=== PATIENT | female | born 1965 | race Hispanic/Latino ===

== ENCOUNTER 2019-01-04 08:51 | Emergency (ER) | payer BC ==
--- NOTE | 2019-01-04 09:38 | RAD REPORT ---
EXAM DESCRIPTION: CT - Head C Spine Mpr Wo Con - 01/04/2019 9:21 am CLINICAL HISTORY: Left arm numbness/headache TECHNIQUE: Computed axial tomography of the head and cervical spine was obtained. Sagittal and coronal reconstruction was performed. All CT scans are performed using dose optimization technique as appropriate and may include automated exposure control or mA/KV adjustment according to patient size. FINDINGS: An intracranial bleed is not seen. The ventricles are normal in caliber. An extra-axial fl uid collection is not noted.Fluid within the visualized sinuses and mastoids is not seen A cervical fracture is not visualized. No dislocation is noted. Prominent posterior spur C5 and C6 wi th disc bulge. Mild central spinal stenosis C5-6. Mild left foraminal stenosis IMPRESSION: No acute intracranial abnormality is seen. A cervical fracture is not visualized. Spondylosis C5-6 resulting in mild central spinal stenosis and mild left foraminal stenosis. If the patient continues to have symptoms to suggest intracranial /spinal cord/spinal canal pathology then MRI would be recommended
[2019-01-04 09:39] LABS: Absolute Lymphocytes (CBC) 1.6 K/uL (0.7-4.9); Basophils % 1.1 % (0-1.3); Hematocrit 42.2 % (36.0-45.0); RBC Red Blood Cell Count 4.51 M/uL (3.86-4.86)
[2019-01-04 09:58] LABS: BUN Blood Urea Nitrogen 14 mg/dL (7-18); Bicarbonate 28 mmol/L (21-32); Glucose Level 121 mg/dL (74-106); Potassium 4.1 mmol/L (3.5-5.1); Sodium Level 138 mmol/L (136-145); Troponin (Emerg Dept Use Only) < 0.02 ng/mL (0.0-0.045)
--- NOTE | 2019-01-04 10:34 | ER ---
Nurse's Notes [facility] Name: Niecy Lockett Age: 53 yrs Sex: Female : 1965 Arrival Date: 01/04/2019 Time: 08:52 Bed 18 Private MD: Diagnosis: Cervical disc disorder with radiculopathy, mid-cervical region Presentation: 01/04 09:08 Presenting complaint: Patient states: left arm tingling since yesterday, feels like she iw slept on it wrong, fingertips are tingling, BP has also been running high. Transition of care: patient was not received from another setting of care. Onset of symptoms was January 03, 2019. Risk Assessment: Do you want to hurt yourself or someone else? Patient reports no desire to harm self or others. Initial Sepsis Screen: Does the patient meet any 2 criteria? No. Patient's initial sepsis screen is negative. Does the patient have a suspected source of infection? No. Patient's initial sepsis screen is negative. Care prior to arrival: None. 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 - Social history:: Smoking status: Patient uses tobacco products, smokes one-half pack cigarettes per day. - Family history:: not pertinent. - Ebola Screening: : Patient negative for fever greater than or equal to 101.5 degrees Fahrenheit, and additional compatible Ebola Virus Disease symptoms Patient denies exposure to infectious person Patient denies travel to an Ebola-affected area in the 21 days before illness onset No symptoms or risks identified at this time. - Hospitalizations: : No recent hospitalization is reported. Screenin:10 Abuse screen: Denies threats or abuse. Nutritional screening: No deficits noted. em Tuberculosis screening: No symptoms or risk factors identified. Fall Risk None identified. Assessment: 09:10 General: Appears in no apparent distress. comfortable, Behavior is calm, cooperative, em Denies fever. Pain: Complains of pain in chest and left arm Pain radiates to left arm Pain currently is 7 out of 10 on a pain scale. Quality of pain is described as numb, Pain began 1 week Is intermittent, lasting a few minutes. Neuro: Level of Consciousness is awake, alert, obeys commands, Oriented to person, place, time, situation, Appropriate for age Supervisor Polishing are equal bilaterally Moves all extremities. Gait is steady, Speech is normal, Facial symmetry appears normal. Cardiovascular: Denies diaphoresis, nausea, vomiting, Heart tones S1 S2 present Capillary refill < 3 seconds Patient's skin is warm and dry. Rhythm is sinus rhythm. Respiratory: Airway is patent Respiratory effort is even, unlabored, Respiratory pattern is regular, symmetrical, Denies cough. GI: Abdomen is flat, Patient currently denies nausea, vomiting. Derm: Skin is intact, is healthy with good turgor, Skin is pink, warm \T\ dry. Musculoskeletal: Capillary refill < 3 seconds, Range of motion: intact in all extremities. 09:25 Reassessment: reports pain in chest when lying down, described as pressure, rates em pressure 7/10, provider notified. 10:10 Reassessment: Patient appears in no apparent distress at this time. Patient and/or em family updated on plan of care and expected duration. Pain level reassessed. Patient is alert, oriented x 3, equal unlabored respirations, skin warm/dry/pink. 10:43 Reassessment: Patient appears in no apparent distress at this time. Patient and/or em family updated on plan of care and expected duration. Pain level reassessed. Patient is alert, oriented x 3, equal unlabored respirations, skin warm/dry/pink. Patient states feeling better. Patient states symptoms have improved. Vital Signs: 09:12 BP 188 / 95; Pulse 65; Resp 16; Temp 98.0; Pulse Ox 98% on R/A; Weight 75.75 kg; Height iw 4 ft. 9 in. (144.78 cm); Pain 0/10; 09:29 BP 187 / 91; Pulse 60; Resp 18; Temp 98.1(O); Pulse Ox 98% on R/A; mh5 10:10 BP 164 / 75; Pulse 58; Resp 18; Pulse Ox 99% on R/A; em 10:43 BP 153 / 82; Pulse 60; Resp 18; Pulse Ox 99% on R/A; Pain 0/10; em 09:12 Body Mass Index 36.14 (75.75 kg, 144.78 cm) ED Course: 08:52 Patient arrived in ED. as 08:55 Dave Coelho MD is Attending Physician. rn 08:56 Thang Mckeon LVN is Primary Nurse. em 09:10 Triage completed. iw 09:12 Arm band placed on. iw 09:19 Patient has correct armband on for positive identification. Placed in gown. Bed in low mh5 position. Call light in reach. Side rails up X 1. Adult w/ patient. Warm blanket given. youth nutritional monitor on. Pulse ox on. NIBP on. 09:19 EKG done, by ED staff, reviewed by Dave Coelho MD. [facility] 09:20 CT completed. Patient tolerated procedure well. Patient moved back from CT. bq 09:21 CT Head C Spine In Process Unspecified. EDMS 09:25 Initial lab(s) drawn, by me, sent to lab. Inserted saline lock: 22 gauge in right em antecubital area, using aseptic technique. Blood collected. 09:39 XRAY Chest (1 view) In Process Unspecified. EDMS 10:42 No provider procedures requiring assistance completed. IV discontinued, intact, em bleeding controlled, No redness/swelling at site. Pressure dressing applied. Administered Medications: No medications were administered Outcome: 10:33 Discharge ordered by . rn 10:42 Discharged to home ambulatory, with family. em 10:42 Condition: good 10:42 Discharge instructions given to patient, family, Instructed on discharge instructions, follow up and referral plans. medication usage, Demonstrated understanding of instructions, follow-up care, medications, Prescriptions given X 1. 10:45 Patient left the ED. em Signatures: Dispatcher [employer] EDMS Kamilla Angeles bq Thang Mckeon, RORO MISCELLANEOUS MACHINE OPERATOR em Lien Adams Irene, RN RN Dave Coelho MD MD rn Martinez, Maria mh5
--- NOTE | 2019-01-04 10:34 | EDPHYS ---
Physician Documentation [facility] Name: Niecy Lockett Age: 53 yrs Sex: Female : 1965 Arrival Date: 01/04/2019 Time: 08:52 Bed 18 Private MD: ED Physician Dave Coelho HPI: 01/04 09:05 This 53 yrs old Female presents to ER via Unassigned with complaints of High rn Blood Pressure, Numbness Of Arm. 09:05 The patient has elevated blood pressure and discovered this at home. Onset: The rn symptoms/episode began/occurred yesterday. Modifying factors:. Associated signs and symptoms: Pertinent negatives: chest pain, visual changes, vomiting, weakness. Severity of symptoms: At its worst the blood pressure was moderate, in the emergency department the blood pressure is unchanged. The patient has experienced similar episodes in the past. Reports blood pressure has been running high, compliant with losartan, reports felt bad yesterday so checked BP, was elevated and went higher today. reports mild headache, and left arm tingling of fingertips and pain of left arm. Pain worse with movement. Denies weakness. No trauma. No chest pain/sob/abd pain/back pain. No vision changes or speech problems. . 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 - Social history:: Smoking status: Patient uses tobacco products, smokes one-half pack cigarettes per day. - Family history:: not pertinent. - Ebola Screening: : Patient negative for fever greater than or equal to 101.5 degrees Fahrenheit, and additional compatible Ebola Virus Disease symptoms Patient denies exposure to infectious person Patient denies travel to an Ebola-affected area in the 21 days before illness onset No symptoms or risks identified at this time. - Hospitalizations: : No recent hospitalization is reported. ROS: 09:05 Constitutional: Negative for fever, chills, and weight loss, Eyes: Negative for injury, rn pain, redness, and discharge, Neck: Negative for injury, pain, and swelling, Cardiovascular: Negative for chest pain, palpitations, and edema, Respiratory: Negative for shortness of breath, cough, wheezing, and pleuritic chest pain, Abdomen/GI: Negative for abdominal pain, nausea, vomiting, diarrhea, and constipation, MS/Extremity: Negative for injury and deformity, Skin: Negative for injury, rash, and discoloration, Neuro: Negative for headache, and seizure. Exam: 09:05 Constitutional: This is a well developed, well nourished patient who is awake, alert, rn and in no acute distress. Ambulatory to room without difficulty. Head/Face: Normocephalic, atraumatic. Eyes: Pupils equal round and reactive to light, extra-ocular motions intact. Lids and lashes normal. Conjunctiva and sclera are non-icteric and not injected. Cornea within normal limits. Periorbital areas with no swelling, redness, or edema. Neck: Trachea midline, no thyromegaly or masses palpated, and no cervical lymphadenopathy. Supple, full range of motion without nuchal rigidity, or vertebral point tenderness. No Meningismus. Cardiovascular: Regular rate and rhythm. No pulse deficits. Respiratory: No increased work of breathing, no retractions or nasal flaring. Abdomen/GI: Soft, non-tender. No evidence of tenderness throughout. Skin: Warm, dry, no pallor. MS/ Extremity: Pulses equal, no cyanosis. Neurovascular intact. Full, normal range of motion. Equal circumference. Neuro: Awake and alert, GCS 15, oriented to person, place, time, and situation. Cranial nerves II-XII grossly intact. Motor strength 5/5 in all extremities. Sensory grossly intact. Cerebellar exam normal. Normal gait. Painful ROM left shoulder/arm. No tremor. 09:15 ECG was reviewed by the Attending Physician. rn Vital Signs: 09:12 BP 188 / 95; Pulse 65; Resp 16; Temp 98.0; Pulse Ox 98% on R/A; Weight 75.75 kg; Height iw 4 ft. 9 in. (144.78 cm); Pain 0/10; 09:29 BP 187 / 91; Pulse 60; Resp 18; Temp 98.1(O); Pulse Ox 98% on R/A; mh5 10:10 BP 164 / 75; Pulse 58; Resp 18; Pulse Ox 99% on R/A; em 10:43 BP 153 / 82; Pulse 60; Resp 18; Pulse Ox 99% on R/A; Pain 0/10; em 09:12 Body Mass Index 36.14 (75.75 kg, 144.78 cm) iw MDM: 08:55 Patient medically screened. rn 10:30 Differential diagnosis: intracerebral hemorrhage, cervical radiculopathy. Data rn reviewed: vital signs, nurses notes, lab test result(s), EKG, radiologic studies, CT scan, plain films, and as a result, I will discharge patient. Test interpretation: by ED physician or midlevel provider: ECG, plain radiologic studies, CXR neg for acute abnormality. Counseling: I had a detailed discussion with the patient and/or guardian regarding: the historical points, exam findings, and any diagnostic results supporting the discharge/admit diagnosis, the presence of at least one elevated blood pressure reading (>120/80) during this emergency department visit, lab results, radiology results, the need for outpatient follow up, to return to the emergency department if symptoms worsen or persist or if there are any questions or concerns that arise at home. Special discussion: I discussed with the patient/guardian in detail that at this point there is no indication for admission to the hospital. It is understood, however, that if the symptoms persist or worsen the patient needs to return immediately for re-evaluation. Based on the history and exam findings, there is no indication for further emergent testing or inpatient evaluation. I discussed with the patient/guardian the need to see the back specialist for further evaluation of the symptoms. I discussed with the patient/guardian the need to see the primary care provider for further evaluation of the symptoms. ED course: CT head neg for acute finding, + C5-C6 bone spur and disc bulge in same distribution of pain and symptoms of patient, BP improving without intervention. Recommend outpt MRI and f/u.. 01/04 09:01 Order name: CBC with Diff; Complete Time: 10: rn 01/04 09: Order name: Basic Metabolic Panel; Complete Time: 10: rn 01/04 09:01 Order name: CT Head C Spine; Complete Time: 10:06 rn 01/04 09:01 Order name: EKG; Complete Time: 09: rn 01/04 09: Order name: Troponin (emerg Dept Use Only); Complete Time: 10:06 rn 01/04 09:01 Order name: XRAY Chest (1 view) rn 01/04 09: Order name: IV Start; Complete Time: 09:35 rn 01/04 09: Order name: EKG - Nurse/Tech; Complete Time: 09:14 rn EC:15 Rate is 62 beats/min. Rhythm is regular. QRS [place] is Normal. [place] interval is normal. QRS rn interval is normal. QT interval is normal. No Q waves. T waves are Normal. No ST changes noted. Clinical impression: Normal ECG. Interpreted by me. Reviewed by me. Administered Medications: No medications were administered Disposition: 01/04/19 10:33 Discharged to Home. Impression: Cervical disc disorder with radiculopathy, mid-cervical region. - Condition is Stable. - Discharge Instructions: Cervical Radiculopathy. - Prescriptions for Medrol (Hilario) 4 mg Oral Tablets, Dose Pack - take 1 tablet by ORAL route as directed - follow package instructions; 1 packet. - Medication Reconciliation Form, Thank You Letter, Antibiotic Education, Prescription Opioid Use form. - Follow up: Private Physician; When: As needed; Reason: Recheck today's complaints, Re-evaluation by your physician. - Problem is new. - Symptoms have improved. Signatures: Dispatcher [employer] EDLA Thang Mckeon, CLEARANCE DIVER CLEARANCE DIVER em Blanche Holder RN RN iw Nieto, Roman, MD MD internet designer: (The following items were deleted from the chart) 09:45 09:05 Constitutional: This is a well developed, well nourished patient who is awake, rn alert, and in no acute distress. Ambulatory to room without difficulty. Head/Face: Normocephalic, atraumatic. Eyes: Pupils equal round and reactive to light, extra-ocular motions intact. Lids and lashes normal. Conjunctiva and sclera are non-icteric and not injected. Cornea within normal limits. Periorbital areas with no swelling, redness, or edema. Neck: Trachea midline, no thyromegaly or masses palpated, and no cervical lymphadenopathy. Supple, full range of motion without nuchal rigidity, or vertebral point tenderness. No Meningismus. Cardiovascular: Regular rate and rhythm. No pulse deficits. Respiratory: No increased work of breathing, no retractions or nasal flaring. Abdomen/GI: Soft, non-tender. No evidence of tenderness throughout. Skin: Warm, dry, no pallor. MS/ Extremity: Pulses equal, no cyanosis. Neurovascular intact. Full, normal range of motion. Equal circumference. Neuro: Awake and alert, GCS 15, oriented to person, place, time, and situation. Cranial nerves II-XII grossly intact. Motor strength 5/5 in all extremities. Sensory grossly intact. Cerebellar exam normal. Normal gait. Painful ROM left shoulder/arm. No tremor. rn 10:45 10:33 01/04/2019 10:33 Discharged to Home. Impression: Cervical disc disorder with em radiculopathy, mid-cervical region. Condition is Stable. Forms are Medication Reconciliation Form, Thank You Letter, Antibiotic Education, Prescription Opioid Use. Follow up: Private Physician; When: As needed; Reason: Recheck today's complaints, Re-evaluation by your physician. Problem is new. Symptoms have improved. rn
[2019-01-04 11:31] VITALS: TEMP 98.1
[2019-01-04 11:32] VITALS: O2SAT 99
[2019-01-04 11:33] VITALS: BP 153/82
--- NOTE | 2019-01-04 12:32 | RAD REPORT ---
EXAM DESCRIPTION: Ryan Single View01/04/2019 9:38 am CLINICAL HISTORY: Hypertension COMPARISON: 2018 FINDINGS: The lungs appear clear of acute infiltrate. The heart is normal size IMPRESSION: No acute abnormalities displayed
--- NOTE | 2019-01-04 19:30 | EKG ---
Test Date: 2019-01-04 Test Time: 09:10:12 Supervisor Special Effects: ROBERTO MEASUREMENT RESULTS: Intervals: Rate: 62 ID: [id number] QRSD: 78 QT: 426 QTc: 432 [place]: P: 46 ID: [id number] QRS: -29 T: 45 INTERPRETIVE STATEMENTS: Normal sinus rhythm Normal ECG Compared to ECG 04/14/2017 18:51:50 Prolonged QT interval no longer present Electronically Signed On 01-04-19 19:30:04 CDT by Juan Munoz
== END 2019-01-04 10:45 | disposition home or self-care (01) ==
LOC: ER 08:51
DX: M50.122 Cervical disc disorder at C5-C6 level with radiculopathy (principal); Z88.6 Allergy status to analgesic agent; Z91.040 Latex allergy status; I10 Essential (primary) hypertension; E11.9 Type 2 diabetes mellitus without complications; F17.210 Nicotine dependence, cigarettes, uncomplicated
CPT/HCPCS: 36415; 70450; 71045; 72125; 80048; 84484; 85025; 93005; 99285

== ENCOUNTER 2022-05-13 13:10 | Emergency (ER) | payer BC ==
[2022-05-13] MEDS ORDERED: LORAZEPAM 1 MG TABLET ONE (13:42)
[2022-05-13 14:05] LABS: Absolute Lymphocytes (CBC) 2.2 K/uL (0.7-4.9); Hematocrit 44.1 % (36.0-45.0); Lymphocytes % 27.3 % (15.3-44.8); MCV 92.7 fL (80-100); MPV 7.8 fL (7.6-11.3); RBC Red Blood Cell Count 4.75 M/uL (3.86-4.86)
[2022-05-13 14:06] LABS: Protime INR 1.1
[2022-05-13 14:21] LABS: Albumin 3.9 g/dL (3.4-5.0); Bilirubin Direct 0.1 mg/dL (0-0.2); Bilirubin Total 0.4 mg/dL (0.2-1.0); Magnesium 2.2 mg/dL (1.6-2.4); Potassium 3.9 mmol/L (3.5-5.1); Protein, Total 7.1 g/dL (6.4-8.2)
--- NOTE | 2022-05-13 14:26 | RAD REPORT ---
EXAM DESCRIPTION: RAD - Chest Single View - 05/13/2022 1:43 pm CLINICAL HISTORY: CHEST PAIN COMPARISON: Chest Single View dated 01/04/2019; Chest Single View dated 04/14/2017 FINDINGS: Lines: None. Lungs: No evidence of edema or pneumonia. Pleural: No significant pleural effusions or pneumothorax. Cardiac: The heart size is within normal limits. Mediastinum: Within normal limits. Bones: No acute fractures. Other: None IMPRESSION: No acute cardiopulmonary disease.
[2022-05-13 14:34] LABS: Troponin High Sensitivity 5.9 pg/mL (<58.9)
[2022-05-13] MEDS ORDERED: HYDRALAZINE HCL 20 MG/ML VIAL ONE (15:03)
[2022-05-13] MEDS ORDERED: FENTANYL CITR 100 MCG/2 ML ONE (18:05)
--- NOTE | 2022-05-15 13:07 | EKG ---
Test Date: 2022-05-13 Test Time: 17:11:17 Email Marketing Assistant: RAJAN MEASUREMENT RESULTS: Intervals: Rate: 77 CT: 180 QRSD: 78 QT: 378 QTc: 427 [place]: P: 38 CT: 180 QRS: -27 T: 115 INTERPRETIVE STATEMENTS: Normal sinus rhythm Anterior infarct, age undetermined ST & T wave abnormality, consider lateral ischemia Abnormal ECG No previous ECG available for comparison Electronically Signed On 05-15-22 13:04:01 CDT by Taqueria Boggs
--- NOTE | 2022-05-15 13:07 | EKG ---
Test Date: 2022-05-13 Test Time: 13:55:17 Permanent Waver: ROLAND MEASUREMENT RESULTS: Intervals: Rate: 63 MA: 198 QRSD: 80 QT: 416 QTc: 425 [place]: P: 37 MA: 198 QRS: -22 T: 92 INTERPRETIVE STATEMENTS: Normal sinus rhythm Anterior infarct, age undetermined Abnormal ECG No previous ECG available for comparison Electronically Signed On 05-15-22 13:04:49 CDT by Taqueria Boggs
--- NOTE | 2022-05-26 16:07 | EDPHYS ---
Physician Documentation [facility] Name: Maria De Jesus Lokcett Age: 56 yrs Sex: Female : 1965 Arrival Date: 05/13/2022 Time: 13:15 Bed 16 Private MD: ED Physician Maicol Landers HPI: 05/13 13:31 This 56 yrs old Female presents to ER via EMS with complaints of chest pain. snw 13:31 The patient or guardian reports chest pain that is located primarily in the anterior snw chest wall, left. Onset: 3 day(s) ago. The pain radiates to the left arm. The chest pain is described as sharp. Duration: The patient or guardian reports multiple episodes, that are intermittent. Severity of pain: At its worst the pain was moderate in the emergency department the pain is unchanged. The patient has not experienced similar symptoms in the past. It is unknown whether or not the patient has recently seen a physician, See Melanie Hernandez NP. Hx of HTN, has not taken bp meds x 4 days. Hx of NIDDM. 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 - Social history:: Smoking status: Patient reports the use of cigarette tobacco products, smokes one-half pack cigarettes per day. ROS: 13:33 Constitutional: Negative for fever, chills, and weight loss, Eyes: Negative for injury, snw pain, redness, and discharge, ENT: Negative for injury, pain, and discharge, Neck: Negative for injury, pain, and swelling, Respiratory: Negative for shortness of breath, cough, wheezing, and pleuritic chest pain, Abdomen/GI: Negative for abdominal pain, nausea, vomiting, diarrhea, and constipation, Back: Negative for injury and pain, : Negative for injury, bleeding, discharge, and swelling, Skin: Negative for injury, rash, and discoloration, Psych: Negative for depression, anxiety, suicide ideation, homicidal ideation, and hallucinations. 13:33 Cardiovascular: Positive for chest pain, of the left clavicle, anterior aspect of left upper chest and left breast. 13:33 MS/extremity: Positive for decreased range of motion, pain, tenderness, of the left arm. Exam: 13:26 Constitutional: This is a well developed, well nourished patient who is awake, alert, snw and in no acute distress. Head/Face: Normocephalic, atraumatic. Eyes: Pupils equal round and reactive to light, extra-ocular motions intact. Lids and lashes normal. Conjunctiva and sclera are non-icteric and not injected. Cornea within normal limits. Periorbital areas with no swelling, redness, or edema. ENT: Nares patent. No nasal discharge, no septal abnormalities noted. Tympanic membranes are normal and external auditory canals are clear. Oropharynx with no redness, swelling, or masses, exudates, or evidence of obstruction, uvula midline. Mucous membranes moist. Neck: Trachea midline, no thyromegaly or masses palpated, and no cervical lymphadenopathy. Supple, full range of motion without nuchal rigidity, or vertebral point tenderness. No Meningismus. Chest/axilla: Normal chest wall appearance and motion. Nontender with no deformity. No lesions are appreciated. 13:26 Respiratory: Lungs have equal breath sounds bilaterally, clear to auscultation and percussion. No rales, rhonchi or wheezes noted. No increased work of breathing, no retractions or nasal flaring. Abdomen/GI: Soft, non-tender, with normal bowel sounds. No distension or tympany. No guarding or rebound. No evidence of tenderness throughout. Back: No spinal tenderness. No costovertebral tenderness. Full range of motion. Skin: Warm, dry with normal turgor. Normal color with no rashes, no lesions, and no evidence of cellulitis. Neuro: Awake and alert, GCS 15, oriented to person, place, time, and situation. Cranial nerves II-XII grossly intact. Motor strength 5/5 in all extremities. Sensory grossly intact. Cerebellar exam normal. Normal gait. 13:26 Cardiovascular: Rate: normal, Rhythm: regular, Pulses: no pulse deficits are appreciated, Heart sounds: normal. 13:26 Musculoskeletal/extremity: ROM: no acute changes, Circulation is intact in all extremities. painful to left axilla and arm Compartment Syndrome exam of affected extremity: is normal. 13:26 Psych: Behavior/mood is anxious, Oriented to person, place, time. Vital Signs: 13:10 BP 196 / 90; Pulse 61; Resp 16; Temp 97.6(TE); Pulse Ox 97% on R/A; Weight 72.57 kg; db Height 4 ft. 11 in. ; Pain 8/10; 14:01 BP 181 / 97; Pulse 62; Resp 14 S; Pulse Ox 100% ; kc6 14:30 BP 164 / 85; Pulse 63; Resp 16; Pulse Ox 99% on R/A; db 15:00 BP 149 / 88; Pulse 65; Resp 16; Pulse Ox 100% ; db 15:17 BP 149 / 85; Pulse 77; Resp 16; Pulse Ox 100% on R/A; db 15:30 BP 144 / 87; Pulse 78; Resp 16; Pulse Ox 100% on R/A; db 16:30 BP 134 / 68; Pulse 81; Resp 16; Pulse Ox 99% on R/A; db 17:15 BP 141 / 83; Pulse 78; Resp 16; Pulse Ox 100% on R/A; db 18:15 BP 130 / 78; Pulse 78; Resp 16; Pulse Ox 97% on R/A; db 13:10 Body Mass Index 32.32 (72.57 kg, 149.86 cm) db 13:10 Pain Scale: Adult db MDM: 13:19 Patient medically screened. snw 13:33 KLEBER Risk Score: 1 - ASA use in past 7 days, 1 - Recent [<24hrs] Severe Angina, TOTAL snw SCORE = 2. Data reviewed: vital signs, nurses notes. Counseling: I had a detailed discussion with the patient and/or guardian regarding: the historical points, exam findings, and any diagnostic results supporting the discharge/admit diagnosis, the presence of at least one elevated blood pressure reading (>120/80) during this emergency department visit, lab results, radiology results. 17:20 The patient was given aspirin in the Emergency Department. KLEBER Risk Score: 1 - ST snw deviation >0.5mm, TOTAL SCORE = 3. Management of patient was discussed with the following: Dr. Landers. Test considered but Not performed: CT: Head. Other Details Pt normally is good about taking her Losartan but has not been taking it for several days prior to s/s, "I've had a lot on my mind". Care significantly affected by the following chronic conditions: Diabetes, Hypertension. Special discussion: Based on the history and exam findings, there is no indication for further emergent testing or inpatient evaluation. I discussed with the patient/guardian the need to see the primary care provider for further evaluation of the symptoms. 17:40 Scoring Tools HEART Score: History: ECG: Total Score = 2. Response to treatment: the snw patient's symptoms have markedly improved after treatment, pt states she is feeling better, EKG unchanged, trop negative x 2. Pt states she will return to ED immediately for worsening symptims.. 17:49 Special discussion: Based on the patient's history, exam, and Dx evaluation, there is snw no indication for emergent intervention or inpatient Tx. It is understood by the patient/guardian that if the Sx's persist or worsen they need to return immediately for re-evaluation. encouraged to take bp medications as prescribed and a baby aspirin daily, follow up cardiology. ED course: Pt feeling better, pain in down to 2-3 to left arm, trop negative x 2, EKG unchanged x 2. 05/13 13:25 Order name: Basic Metabolic Panel; Complete Time: 14:37 05/13 13:25 Order name: CBC with Diff; Complete Time: 14:06 05/13 13:25 Order name: LFT's; Complete Time: 14:37 05/13 13:25 Order name: Magnesium; Complete Time: 14:37 05/13 13:25 Order name: NT PRO-BNP; Complete Time: 14:37 05/13 13:25 Order name: PT-INR; Complete Time: 14:08 05/13 13:25 Order name: Troponin HS; Complete Time: 14:37 05/13 13:25 Order name: Lipase; Complete Time: 14:37 05/13 15:51 Order name: Troponin High Sensitivity; Complete Time: 17:08 [facility] 05/13 13:25 Order name: XRAY Chest (1 view); Complete Time: 14:28 05/13 13:25 Order name: Cardiac monitoring; Complete Time: 14:01 05/13 13:25 Order name: EKG - Nurse/Tech 05/13 13:25 Order name: IV Saline Lock; Complete Time: 16:44 05/13 13:25 Order name: Labs collected and sent; Complete Time: 16:44 snw 05/13 13:25 Order name: O2 Per Protocol; Complete Time: 14:01 snw 05/13 13:25 Order name: O2 Sat Monitoring; Complete Time: 14:01 snw 05/13 14:41 Order name: Repeat Cardiac Enzymes at: 1640; Complete Time: 18:51 snw 05/13 15:51 Order name: EKG - Nurse/Tech; Complete Time: 17:55 snw EC:58 Rate is 53 beats/min. Rhythm is regular. T waves are Inverted in leads aVL, aVR. ST snw Segment is elevated in lead V1. Clinical impression: NSR w/ Non-specific ST/T Changes. Administered Medications: 13:40 Drug: LORazepam PO 1 mg Route: PO; db 15:36 Follow up: Response: No adverse reaction db 14:46 Not Given (given by EMS): Aspirin PO Chewable Tablet 324 mg PO once; 81 mg tablets x 4 db 15:01 Drug: hydrALAZINE IVP 10 mg Route: IVP; Site: left antecubital; db 15:36 Follow up: Response: No adverse reaction db 18:01 Drug: fentaNYL (PF) IVP 25 mcg Route: IVP; Site: left antecubital; db 18:50 Follow up: Response: No adverse reaction db Disposition: 05/14 17:12 Co-signature as Attending Physician, Maicol Landers MD I reviewed the patient's care rt provided by the Advanced Practice Provider and agree with the diagnosis and treatment plan. Disposition Summary: 05/13/22 17:51 Discharge Ordered Location: Home snw Condition: Stable snw Diagnosis - Hypertensive urgency snw - Chest pain, unspecified snw Followup: snw - With: Emergency Department - When: As needed - Reason: Worsening of condition Followup: snw - With: Private Physician - When: 2 - 3 days - Reason: Recheck today's complaints, Continuance of care, Re-evaluation by your physician Discharge Instructions: - Discharge Summary Sheet snw - Nonspecific Chest Pain, Adult snw - Hypertension, Adult snw - How to Take Your Blood Pressure, [id number] snw - Aspirin and Your Heart snw - Form - Blood Pressure Record Sheet snw Forms: - Work release form snw - Medication Reconciliation Form snw - Thank You Letter snw - Antibiotic Education snw - Prescription Opioid Use snw Signatures: Dispatcher [employer] EDMS Елена Crowley, JAVA WEBSPHERE DEVELOPER-C JAVA WEBSPHERE DEVELOPER-Csnw Ofe Holly, RN RN db Maicol Landers MD MD rt
--- NOTE | 2022-05-26 16:07 | ER ---
Nurse's Notes [facility] Name: Maria De Jesus Lockett Age: 56 yrs Sex: Female : 1965 Arrival Date: 05/13/2022 Time: 13:15 Bed 16 Private MD: Diagnosis: Hypertensive urgency;Chest pain, unspecified Presentation: 05/13 13:10 Chief complaint: EMS states: left arm numbness and tingling x 3 days with chest pain db that was worse today. Coronavirus screen: Vaccine status: Patient reports receiving the 2nd dose of the covid vaccine. Client denies travel out of the [place] in the last 14 days. At this time, the client does not indicate any symptoms associated with coronavirus-19. Ebola Screen: Patient negative for fever greater than or equal to 101.5 degrees Fahrenheit, and additional compatible Ebola Virus Disease symptoms Patient denies exposure to infectious person. Patient denies travel to an Ebola-affected area in the 21 days before illness onset. No symptoms or risks identified at this time. Initial Sepsis Screen: Does the patient meet any 2 criteria? No. Patient's initial sepsis screen is negative. Does the patient have a suspected source of infection? No. Patient's initial sepsis screen is negative. Risk Assessment: Do you want to hurt yourself or someone else? Patient reports no desire to harm self or others. Onset of symptoms was May 10, 2022. Care prior to arrival: Medication(s) given: ASA, 81 mg, x 4. 13:10 Method Of Arrival: EMS: [facility] db 13:10 Acuity: KSENIA 2 db Triage Assessment: 13:25 General: Appears in no apparent distress. uncomfortable, Behavior is calm, cooperative, db appropriate for age. Pain: Complains of pain in chest. Cardiovascular: Reports chest pain, radiating to left arm with numbness and tingling. 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 - Social history:: Smoking status: Patient reports the use of cigarette tobacco products, smokes one-half pack cigarettes per day. Screenin:21 [facility] ED Fall Risk Assessment (Adult) History of falling in the last 3 months, db including since admission No falls in past 3 months (0 pts) Confusion or Disorientation No (0 pts) Intoxicated or Sedated No (0 pts) Impaired Gait No (0 pts) Mobility Assist Device Used No (0 pt) Altered Elimination No (0 pt) Score/Fall Risk Level 0 - 2 = Low Risk Oriented to surroundings, Maintained a safe environment. Abuse screen: Denies threats or abuse. Denies injuries from another. Nutritional screening: No deficits noted. Tuberculosis screening: No symptoms or risk factors identified. Assessment: 13:50 General: Appears in no apparent distress. comfortable, Behavior is calm, cooperative. db Pain: Complains of pain in chest Pain radiates to left arm. Neuro: Level of Consciousness is awake, alert, obeys commands, Oriented to person, place, time, situation. 15:30 Reassessment: Patient appears in no apparent distress at this time. Patient and/or db family updated on plan of care and expected duration. Pain level reassessed. Patient is alert, oriented x 3, equal unlabored respirations, skin warm/dry/pink. 16:22 Reassessment: Patient appears in no apparent distress at this time. Patient and/or db family updated on plan of care and expected duration. Pain level reassessed. Patient is alert, oriented x 3, equal unlabored respirations, skin warm/dry/pink. 17:30 Reassessment: Patient appears in no apparent distress at this time. Patient and/or db family updated on plan of care and expected duration. Pain level reassessed. Patient is alert, oriented x 3, equal unlabored respirations, skin warm/dry/pink. 18:27 Reassessment: Patient appears in no apparent distress at this time. Patient and/or db family updated on plan of care and expected duration. Pain level reassessed. Patient is alert, oriented x 3, equal unlabored respirations, skin warm/dry/pink. patient pending discharge for narcotic wait time Patient states feeling better. General: Appears in no apparent distress. comfortable, Behavior is calm, cooperative. Vital Signs: 13:10 BP 196 / 90; Pulse 61; Resp 16; Temp 97.6(TE); Pulse Ox 97% on R/A; Weight 72.57 kg; db Height 4 ft. 11 in. ; Pain 8/10; 14:01 BP 181 / 97; Pulse 62; Resp 14 S; Pulse Ox 100% ; kc6 14:30 BP 164 / 85; Pulse 63; Resp 16; Pulse Ox 99% on R/A; db 15:00 BP 149 / 88; Pulse 65; Resp 16; Pulse Ox 100% ; db 15:17 BP 149 / 85; Pulse 77; Resp 16; Pulse Ox 100% on R/A; db 15:30 BP 144 / 87; Pulse 78; Resp 16; Pulse Ox 100% on R/A; db 16:30 BP 134 / 68; Pulse 81; Resp 16; Pulse Ox 99% on R/A; db 17:15 BP 141 / 83; Pulse 78; Resp 16; Pulse Ox 100% on R/A; db 18:15 BP 130 / 78; Pulse 78; Resp 16; Pulse Ox 97% on R/A; db 13:10 Body Mass Index 32.32 (72.57 kg, 149.86 cm) db 13:10 Pain Scale: Adult db ED Course: 13:15 Patient arrived in ED. kj1 13:19 Елена Crowley FNP-C [facility]. snw 13:19 Maicol Landers MD is Attending Physician. snw 13:22 Ofe Holly, MATT is Primary Nurse. db 13:25 Triage completed. db 13:26 Arm band placed on left wrist. Patient placed in an exam room. db 13:45 XRAY Chest (1 view) In Process Unspecified. EDMS 13:55 Inserted saline lock: 20 gauge in left antecubital area, using aseptic technique. Blood db collected. 18:29 Patient has correct armband on for positive identification. Bed in low position. Call db light in reach. Side rails up X 1. Client placed on continuous cardiac and pulse oximetry monitoring. NIBP monitoring applied. Warm blanket given. 18:49 No provider procedures requiring assistance completed. IV discontinued, intact, db bleeding controlled, No redness/swelling at site. Administered Medications: 13:40 Drug: LORazepam PO 1 mg Route: PO; db 15:36 Follow up: Response: No adverse reaction db 14:46 Not Given (given by EMS): Aspirin PO Chewable Tablet 324 mg PO once; 81 mg tablets x 4 db 15:01 Drug: hydrALAZINE IVP 10 mg Route: IVP; Site: left antecubital; db 15:36 Follow up: Response: No adverse reaction db 18:01 Drug: fentaNYL (PF) IVP 25 mcg Route: IVP; Site: left antecubital; db 18:50 Follow up: Response: No adverse reaction db Medication: 18:49 VIS not applicable for this client. db Outcome: 17:51 Discharge ordered by MD. [email or web address] 18:49 Discharged to home ambulatory. db 18:49 Condition: stable 18:49 Discharge instructions given to patient, Instructed on discharge instructions, follow up and referral plans. 18:51 Patient left the ED. db Signatures: Dispatcher [employer] EDMS Елена Crowley FNP-C BICYCLE FITTER-Csnw Ilda Goddard kj1 Itzel Apple, RN RN kc6 Ofe Holly RN RN db
== END 2022-05-13 18:51 | disposition home or self-care (01) ==
LOC: ER 13:10
DX: R07.89 Other chest pain (principal); I16.0 Hypertensive urgency; I10 Essential (primary) hypertension; F17.210 Nicotine dependence, cigarettes, uncomplicated; Z88.5 Allergy status to narcotic agent; Z91.040 Latex allergy status; Z91.048 Other nonmedicinal substance allergy status
CPT/HCPCS: 93005 ×2; 85025; 80048; 36415; 83735; 85610; 80076; 84484 ×2; 83690; 83880; 71045; 96375; 96374; 99284; J0360; J3010